=== PATIENT | female | born 1995 | race American Indian/Alaskan Native ===

== ENCOUNTER 2019-01-28 20:18 | Emergency (ER) | payer OTHER ==
[~2019-01-28] VITALS: Ht 160 cm; Wt 65.4 kg
[2019-01-28] MEDS ORDERED: NS 1,000 ML IV ONE (20:30)
[2019-01-28 20:58] LABS: BASO % 0.3 % (0.0-1.0); EOS % 0.3 % (0.0-3.0); HEMATOCRIT 36.8 % (36.0-47.0); HEMOGLOBIN 12.6 g/dl (12.0-15.5); LYMPH # 1.9 10^3/uL (1.5-6.5); LYMPH % 26.9 % (24.0-44.0); MEAN CORPUSCULAR HGB CONC 34.2 g/dl (32.0-36.5); MEAN CORPUSCULAR VOLUME 90.4 fl (80.0-96.0); MONO # 0.4 10^3/uL (0.0-0.8); MONO % 5.8 % (0.0-5.0); NEUTROPHILS # 4.7 10^3/uL (1.8-7.7); NEUTROPHILS % 66.3 % (36.0-66.0); PLATELET COUNT, AUTOMATED 272 10^3/uL (150-450); RED BLOOD COUNT 4.07 10^6/uL (4.00-5.40); WHITE BLOOD COUNT 7.1 10^3/uL (4.0-10.0)
[2019-01-28 20:59] LABS: VENOUS BASE EXCESS -3.1 (-2.0-2.0); VENOUS HCO3 21.5 MEQ/L (23.0-27.0); VENOUS O2 SATURATION 97.6 % (60.0-80.0); VENOUS PARTIAL PRESSURE CO2 37.3 mmHg (38.0-50.0); VENOUS PARTIAL PRESSURE O2 101.7 mmHg (30.0-50.0); VENOUS PH 7.379 UNITS (7.330-7.430); VENOUS STANDARD HCO3 21.9 MEQ/L; VENOUS TOTAL CO2 22.7 MEQ/L (24.0-28.0)
[2019-01-28 21:28] LABS: AMPHETAMINES LEVEL URINE NEGATIVE (NEGATIVE); BARBITURATES URINE NEGATIVE (NEGATIVE); BENZODIAZEPINES URINE NEGATIVE (NEGATIVE); CANNABINOIDS URINE NEGATIVE (NEGATIVE); COCAINE METABOLITE URINE NEGATIVE (NEGATIVE); METHADONE URINE NEGATIVE (NEGATIVE); OPIATES URINE NEGATIVE (NEGATIVE); PHENCYCLIDINE URINE NEGATIVE (NEGATIVE)
[2019-01-28 21:41] LABS: HCG, SERUM QUALITATIVE NEGATIVE (NEGATIVE); OSMOLALITY SERUM 365 MOSM/KG (275-295)
[2019-01-28 21:44] LABS: ACETAMINOPHEN LEVEL < 2.0 UG/ML (10.0-30.0); ALBUMIN 4.1 GM/DL (3.2-5.2); ALT/SGPT 18 U/L (12-78); BILIRUBIN,DIRECT < 0.1 MG/DL (0.0-0.2); BILIRUBIN,TOTAL 0.3 MG/DL (0.2-1.0); BLOOD UREA NITROGEN 7 MG/DL (7-18); CALCIUM LEVEL 8.7 MG/DL (8.5-10.1); CARBON DIOXIDE LEVEL 22 MEQ/L (21-32); CHLORIDE LEVEL 110 MEQ/L (98-107); CPK CREATINE PHOSPHOKINASE 91 U/L (26-192); CREATININE FOR GFR 0.72 MG/DL (0.55-1.30); ETHYL ALCOHOL (ETHANOL) 0.312 % (0.000-0.010); GLOMERULAR FILTRATION RATE > 60.0 (>60); GLUCOSE, FASTING 99 MG/DL (70-100); POTASSIUM SERUM 3.5 MEQ/L (3.5-5.1); SALICYLATE LEVEL < 1.7 MG/DL (5.0-30.0); SODIUM LEVEL 142 MEQ/L (136-145); TOTAL PROTEIN 7.6 GM/DL (6.4-8.2)
[2019-01-29 02:14] VITALS: BP 117/68
--- NOTE | 2019-01-29 19:22 | ECGEPIP ---
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
--- NOTE | 2019-01-30 09:34 | REP ---
AP PORTABLE CHEST: 01/28/2019. Clinical history: Drug overdose. Findings: Lungs hypoinflated. There is no infiltrate or effusion. No lateral pleural thickening. Heart size magnified by low-level of inflation and portable technique. No gross cardiomegaly or edema. No infiltrate or atelectasis. The aorta and airway intact. The bony thorax unremarkable. No free air. Impression: 1. Negative but hypoinflated AP portable chest. Electronically Signed by Jose Morgan MD 01/30/2019 08:17 P
== END 2019-01-29 02:17 | disposition home or self-care (01) ==
LOC: M ED 21:49
DX: F10.229 Alcohol dependence with intoxication, unspecified (principal); F17.210 Nicotine dependence, cigarettes, uncomplicated
CPT/HCPCS: 36415; 71045; 80048; 80076; 80307; 82550; 82803; 83605; 83930; 84443; 84703; 85025; 85379; 93005; 93041; 99285; G0480

== ENCOUNTER 2019-12-02 22:05 | Emergency (ER) | payer OTHER ==
[~2019-12-02] VITALS: Ht 160 cm; Wt 63.6 kg
[2019-12-02] MEDS ORDERED: LIDOCAINE 2% W/EPINEPHRINE 20ML VIAL **PRES FREE INJ ONE (23:00)
[2019-12-02] MEDS ORDERED: KEFL500C17 PO (23:42)
[2019-12-02] MEDS ORDERED: CEPHALEXIN 500 MG CAP PO ONE (23:45)
[2019-12-02 23:55] VITALS: BP 110/55
== END 2019-12-03 00:06 | disposition home or self-care (01) ==
LOC: M ED 22:05
DX: S61.411A Laceration without foreign body of right hand, initial encounter (principal); W26.8XXA Contact with other sharp object(s), not elsewhere classified, initial encounter; Y92.000 Kitchen of unspecified non-institutional (private) residence as the place of occurrence of the external cause; Y93.G3 Activity, cooking and baking; Y99.9 Unspecified external cause status

== ENCOUNTER 2020-04-17 09:29 | Emergency (ER) | payer OTHER ==
[~2020-04-17] VITALS: Ht 160 cm; Wt 66.8 kg
[~2020-04-17 09:29] MED LIST: KEFL500C17 PO
[2020-04-17 09:31] VITALS: BP 131/64
[2020-04-17] MEDS ORDERED: APAP325T4 PO (09:37)
[2020-04-17] MEDS ORDERED: LIDOCAINE 1% MDV 20ML VIAL SC ONE (10:00)
--- NOTE | 2020-04-17 10:12 | REP ---
INDICATION: laceration to plantar aspect great toe. COMPARISON: None TECHNIQUE: Two views provided FINDINGS: The two views show no definite radiopaque foreign body about the plantar aspect of the great toe where there is a reported laceration. No focal bone lesion, fracture or avulsion. IMPRESSION: No visible radiopaque foreign body or embedded glass seen on this examination. No acute bony abnormality. <Electronically signed by Jose Morgan > 04/17/20 [id number]
[2020-04-17] MEDS ORDERED: KEFL500C17 PO (10:55)
== END 2020-04-17 11:06 | disposition home or self-care (01) ==
LOC: M ED 09:29
DX: S91.112A Laceration without foreign body of left great toe without damage to nail, initial encounter (principal); W25.XXXA Contact with sharp glass, initial encounter; Y92.018 Other place in single-family (private) house as the place of occurrence of the external cause